=== PATIENT | female | born 1940 | race Caucasian/White ===

== ENCOUNTER 2022-04-07 10:58 | Emergency (ER) | payer MEDICARE, OTHER ==
[~2022-04-07] VITALS: Ht 167.6 cm; Wt 81.7 kg
[~2022-04-07 10:58] MED LIST: CARV25 PO; CARV3.125; CARV6.25 PO; COLC.6 PO; DOXE10 PO; ESTR2 PO; GLIP10 PO; HYDCHL25 PO; HYDRA25 PO; LIRA0.6P; LOSA25 PO; OMEP20ER PO; OXYACE5T PO; PROM25 PO; TELM80/12.5 PO
[2022-04-07] MEDS ORDERED: TRULICITY0.75 MG/01 SQ (11:40)
[2022-04-07] MEDS ORDERED: Percocet 5-3251 EACH PO (13:22)
[2022-04-07] MEDS ORDERED: IBUP800 PO (13:22)
== END 2022-04-07 13:30 | disposition home or self-care (01) ==
LOC: ER 10:58
DX: M71.21 Synovial cyst of popliteal space [Baker], right knee (principal); I10 Essential (primary) hypertension; Z79.899 Other long term (current) drug therapy; Z88.0 Allergy status to penicillin; Z88.8 Allergy status to other drugs, medicaments and biological substances
CPT/HCPCS: 73590; 93971; A9270

== ENCOUNTER → 2023-08-28 | Outpatient (CLI) | payer MEDICARE, OTHER ==
[~2023-08-28] MED LIST changes: +IBUP800 PO; +Percocet 5-3251 EACH PO; +TRULICITY0.75 MG/01 SQ
[2023-08-28 14:20] LABS: Alanine Aminotransfer (ALT/SGP 20 U/L (12-78); Albumin, Blood 3.8 g/dL (3.4-5.0); Alk Phos 78 U/L (50-136); Anion Gap 10 mmol/L (3-11); Aspartate Aminotrans (AST/SGOT 18 U/L (12-37); Bilirubin, Total 0.4 mg/dL (0.1-1.0); Blood Urea Nitrogen 30 mg/dL (8-24); Bun/Creatinine Ratio 19.7 (12.0-20.0); CHOL/HDL RATIO 2.9; CO2, Blood 23 mmol/L (21-32); Calcium, Blood 9.1 mg/dL (8.5-10.1); Chloride, Blood 113 mmol/L (98-108); Cholesterol 126 mg/dL (50-200); Creatinine, Blood 1.52 mg/dL (0.40-1.00); Glomerular Filtration Rate 34 (60-); Glucose, Blood 174 mg/dL (70-99); HDL Cholesterol 44 mg/dL (>39); LDL/HDL RATIO 1.2; Low Density Lipoprotein Chol 54 mg/dL (0-110); Potassium, Blood 4.7 mmol/L (3.5-5.5); Sodium, Blood 141 mmol/L (136-145); Total Protein, Blood 7.8 g/dL (6.4-8.2); Triglycerides 139 mg/dL (30-160); Uric Acid, Blood 7.7 mg/dL (2.6-6.0); Very Low Density Lipoprot Chol 27 mg/dL (6-32)
[2023-08-28 14:27] LABS: BASOPHILS ABSOLUTE AUTO 0.08 K/mm3 (0.00-0.23); BASOPHILS PERCENT AUTO 1 % (0-2); EOSINOPHILS ABSOLUTE AUTO 0.45 K/mm3 (0.00-0.68); EOSINOPHILS PERCENT AUTO 6 % (0-6); Hemoglobin 13.1 g/dL (11.5-16.0); IMMATURE GRAN ABSOLUTE AUTO 0.03 K/mm3 (0.00-0.10); IMMATURE GRAN PERCENT AUTO 0 % (0-1); LYMPHOCYTES ABSOLUTE AUTO 1.87 K/mm3 (0.84-5.20); LYMPHOCYTES PERCENT AUTO 24 % (21-46); MONOCYTES ABSOLUTE AUTO 0.55 K/mm3 (0.16-1.47); MONOCYTES PERCENT AUTO 7 % (4-13); Mean Corpuscular HGB 29.8 pg (26.0-34.0); Mean Corpuscular Volume 93 fL (80-100); Mean Platelet Volume 11.4 fL (9.1-12.4); NEUTROPHILS ABSOLUTE AUTO 4.78 K/mm3 (1.96-9.15); NEUTROPHILS PERCENT AUTO 62 % (41-73); Platelet Count 273 K/mm3 (150-400); RDW Coefficient Variation 12.4 % (11.7-14.2); RDW Standard Deviation 42.7 fL (35.1-46.3); White Blood Cell Count 7.76 K/mm3 (4.00-11.30)
== END ==
LOC: LAB SHORT 09:40 → LAB 09:40
PROVIDERS: Internal Medicine
DX: E11.21 Type 2 diabetes mellitus with diabetic nephropathy (principal); E78.5 Hyperlipidemia, unspecified; M10.9 Gout, unspecified
CPT/HCPCS: 80053; 80061; 83036; 84550; 85025

== ENCOUNTER → 2024-02-04 | Outpatient (CLI) | payer MEDICARE, OTHER | END | disposition home or self-care (01) | LOC: LAB SHORT 13:18 → LAB 13:18 | DX: M10.9 Gout, unspecified (principal) | CPT/HCPCS: 84550 ==

== ENCOUNTER → 2024-06-05 | Outpatient (CLI) | payer MEDICARE, OTHER ==
[2024-06-08 04:12] LABS: CYCLIC CITRULLINATED PEP,IGG/A 4 Units (0-19)
== END ==
LOC: LAB SHORT 15:52 → LAB 15:52
PROVIDERS: Internal Medicine Rheumatology
DX: M25.50 Pain in unspecified joint (principal)
CPT/HCPCS: 86200